=== PATIENT | female | born 1930 | race American Indian/Alaskan Native ===

== ENCOUNTER 2020-02-23 07:29 | Emergency (ER) | payer MEDICARE ==
[2020-02-23 08:04] VITALS: BP 158/98
== END 2020-02-23 10:44 | disposition other institution (70) ==
LOC: EDBD → ED 07:29
DX: S70.02XA Contusion of left hip, initial encounter (principal); F03.90 Unspecified dementia, unspecified severity, without behavioral disturbance, psychotic disturbance, mood disturbance, and anxiety; X58.XXXA Exposure to other specified factors, initial encounter; Y93.89 Activity, other specified; Y92.89 Other specified places as the place of occurrence of the external cause; Y99.8 Other external cause status
CPT/HCPCS: 70450